=== PATIENT | male | born 1945 | race African-American/Black ===

== ENCOUNTER 2016-08-16 12:29 | Inpatient (IN) ==
[2016-08-17] MEDS: *HR* OxyCODONE Immed Rel 5 MG TABLET PO PRN ×3 (14:33→23:47)
[2016-08-17] MEDS ORDERED: D5% in Water 1,000 ML IV PRN (14:59)
[2016-08-17] MEDS ORDERED: *HR* Dextrose 50 % in Water (Syg) 50 ML SYRINGE IVP PRN (14:59)
[2016-08-17] MEDS ORDERED: Dextrose Gel 15 GM PO PRN ×2 (14:59)
[2016-08-17] MEDS: Baclofen 10 MG TABLET PO SCH ×2 (16:59→19:48)
[2016-08-17] MEDS: *HR* OxyCODONE ER (12 HR) 10 MG TABLET PO PRN (17:03)
[2016-08-18] MEDS: *HR* OxyCODONE Immed Rel 5 MG TABLET PO PRN ×5 (03:47→20:46)
[2016-08-18 05:37] LABS: Basophils % 0.3 %; Eosinophils # 0.1 K/mcL (0.0-0.6); Eosinophils % 0.9 %; Hematocrit 37.6 % (37.5-50.1); INR 1.2; Immature Granulocytes % 0.6 % (0-4); Lymphocytes # 0.9 K/mcL (0.6-4.6); Lymphocytes % 6.9 %; Mean Corpuscular HGB Conc 31.9 g/dL (31.6-35.5); Mean Corpuscular Hemoglobin 26.7 pg (28.0-33.3); Mean Corpuscular Volume 83.6 fL (83.0-100.0); Mean Platelet Volume 9.8 fL (9.4-12.4); Monocytes # 1.4 K/mcL (0.0-1.3); Monocytes % 10.9 %; Neutrophils # 10.3 K/mcL (1.6-8.9); Platelet Count 251 K/mcL (140-400); Prothrombin Time 13.3 Seconds (9.4-12.1); Red Cell Distribution Width 15.2 % (11.5-14.5); Segmented Neutrophils % 80.4 %
[2016-08-18 05:40] LABS: Activated Partial Thrombo Time 30.4 Seconds (26.0-36.0)
[2016-08-18 05:48] LABS: BUN/Creatinine Ratio 34 (6-26); Blood Urea Nitrogen 25 mg/dL (8-26); Calcium 9.2 mg/dL (8.6-10.8); Carbon Dioxide 26 mEq/L (19-29); Chloride 100 mEq/L (98-109); Glucose 166 mg/dL (70-99); Osmolality,Calculated 294 (280-300); Potassium 3.2 mEq/L (3.5-4.5); Sodium 138 mEq/L (136-145); eGFR For African Americans > 60 (> 60); eGFR For Non-African Americans > 60 (> 60)
[2016-08-18] MEDS: *HR* OxyCODONE ER (12 HR) 10 MG TABLET PO PRN ×2 (06:05→18:46)
[2016-08-18] MEDS: Lisinopril-HCTZ 20-12.5mg TABLET PO SCH (08:14)
[2016-08-18] MEDS: Baclofen 10 MG TABLET PO SCH ×3 (08:14→20:46)
[2016-08-18] MEDS: Aspirin 81 MG TAB.CHEW PO SCH (08:15)
[2016-08-18] MEDS: Metoprolol XL (24 HR) Succ 50 MG TAB.ER.24H PO SCH (08:15)
[2016-08-18] MEDS: MOM Conc 10 ML UD.LIQ PO SCH (08:15)
[2016-08-18] MEDS ORDERED: Ketorolac 60 MG/2 ML VIAL IM ONE (08:50)
[2016-08-18] MEDS: *HR* LORazepam 1 MG TABLET PO PRN ×2 (09:23→20:46)
--- NOTE | 2016-08-18 10:54 | Internal Med History&Physical ---
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 Kimble is a 71 year old male admitted to this facility for PTOT. Patient underwent a posterior cervical decompression and fusion of C3-C7. He has a history of cervical spinal cord compression, cervical myopathy. On today's examination the patient complains of significant postop pain. His long-acting pain medications along with rescue dose is not adequate patient is taking 3 to assist from supine to sit. Once to be laid down almost immediately due to pain. Patient has been requiring 2 person to assist in transfer. Patient has inability to sit up and stand.. Past Med Surg Social Fam HX - Past Medical History Medical history: arthritis, coronary artery disease, GERD, GI bleed, hyperlipidemia, hypertension Psychiatric history: no psych history - Past Surgical History Surgical History: orthopedic, other, other - Social History Smoking Status: Former smoker Smokeless Tobacco Status: No Alcohol use: none Drug use: none - Family History Mother Living Status: Age at : 76 Cause of : aortic anurism Internal Medicine - H&P: Meds OxyCODONE ER (12 HR) [OxyCONTIN] 10 mg PO Q12HR PRN 05/27/15 [History] Amlodipine Besylate 10 mg PO DAILY 03/17/16 [History] Atorvastatin [Lipitor] 40 mg PO HS 03/17/16 [History] Lisinopril/Hydrochlorothiazide [Zestoretic 20-12.5 mg Tablet] 2 tab PO DAILY 10/27 [History] Metoprolol XL (24 HR) Succ [Toprol Xl] 50 mg PO DAILY 03/17/16 [History] Oxycodone HCl/Acetaminophen [Percocet 5-325 mg Tablet] 1 tab PO Q6H PRN [History] Pantoprazole Sodium [Protonix] 40 mg PO Q12H #60 tablet. 03/19/16 [Rx] Sucralfate [Carafate] 1 gm PO TIDAC 30 Days 03/19/16 [Rx] Aspirin 81 mg PO DAILY 07/31/16 [History] OxyCODONE Immed Rel [Roxicodone 5 MG] 10 mg PO Q4H PRN #30 tablet 08/16/16 [Rx] Allergies Iodinated Contrast Media - Oral and [Iodinated Contrast Media - IV Dye] Allergy (Verified 05/01/16 12:58) Hives pravastatin Allergy (Verified 07/31/16 09:28) See Comments tachycardia pregabalin [From Lyrica] Adverse Reaction (Verified 07/31/16 09:28) See Comments strange thoughts All Systems PM: A 10-system review of systems was performed and is negative for pertinent findings except as documented above in the HPI. - Cardiovascular Cardiovascular ROS IM: no chest pain, no diaphoresis, no dyspnea, no lightheadedness, no palpitations, no syncope - Respiratory Respiratory: no cough, no dyspnea, no wheezing, no excessive phlegm production - Gastrointestinal Gastrointestinal: no abdominal pain, no diarrhea, no hematemesis, no hematochezia, no melena, no nausea, no vomiting - Musculoskeletal Musculoskeletal ROS IM: arthralgias, back pain, neck pain - Integumentary Integumentary IM: no rash, no unusual bruising - Neurological Neurological ROS: abnormal gait, radicular pain, no confusion, no convulsions, no focal weakness, no numbness, no tingling, no tremor(s) - Constitutional Vitals: Temp Pulse Resp BP Pulse Ox 98.7 F 76 16 158/78 97 08/18/16 09:29 08/18/16 09:29 08/18/16 09:29 08/18/16 09:29 08/18/16 09:29 General appearance: Present: mild distress, A&O X 3 - Neck Neck exam general surgery: Present: tenderness - Cardiovascular Cardiovascular exam: Present: RRR, +S1, +S2. Absent: diastolic murmur, gallop, rubs, systolic murmur - GI/Abdominal GI/Abdominal exam: Present: normal bowel sounds, soft, no peritoneal signs. Absent: distended, tenderness - Extremities Exam Extremities exam: Present: warm, radial pulses palpable and symetrical. Absent : calf tenderness, cyanotic, pedal edema - Neurological Exam Neurological exam: Present: CN II-XII intact, oriented X3, no focal deficits. Absent: pronater drift, facial droop, speech deficit Internal Med - H&P Results - Labs CBC & Chem 7: 08/18/16 05:25 08/18/16 05:25 Labs: Short CBC 08/18/16 Range/Units 05:25 WBC 12.8 H (4.3-11.1) K/mcL Hgb 12.0 L (12.9-16.9) g/dL Hct 37.6 (37.5-50.1) % Plt Count 251 (140-400) K/mcL Neutrophils # 10.3 H (1.6-8.9) K/mcL BMP 08/18/16 05:25 Sodium 138 Potassium 3.2 L Chloride 100 Carbon Dioxide 26 BUN 25 D Creatinine 0.73 Glucose 166 H Calcium 9.2 - VTE Documentation of Mechanical Device: Graduated compression elastic hosiery
[2016-08-18] MEDS: Ketorolac 30 MG/ML VIAL IM PRN (21:30)
[2016-08-19 05:23] LABS: Basophils # 0.1 K/mcL (0.0-0.2); Basophils % 0.7 %; Eosinophils # 0.3 K/mcL (0.0-0.6); Hematocrit 37.6 % (37.5-50.1); Hemoglobin 12.2 g/dL (12.9-16.9); Immature Granulocytes % 0.7 % (0-4); Lymphocytes # 1.8 K/mcL (0.6-4.6); Lymphocytes % 13.5 %; Mean Corpuscular HGB Conc 32.4 g/dL (31.6-35.5); Mean Corpuscular Hemoglobin 27.1 pg (28.0-33.3); Mean Corpuscular Volume 83.4 fL (83.0-100.0); Mean Platelet Volume 10.2 fL (9.4-12.4); Monocytes # 1.9 K/mcL (0.0-1.3); Neutrophils # 9.3 K/mcL (1.6-8.9); Platelet Count 286 K/mcL (140-400); Red Blood Count 4.51 M/mcL (4.19-5.50); Red Cell Distribution Width 15.4 % (11.5-14.5); Segmented Neutrophils % 69.1 %
[2016-08-19 05:31] LABS: INR 1.3; Prothrombin Time 13.6 Seconds (9.4-12.1)
[2016-08-19 05:43] LABS: Chloride 101 mEq/L (98-109)
[2016-08-19 05:44] LABS: BUN/Creatinine Ratio 41 (6-26); Blood Urea Nitrogen 35 mg/dL (8-26); Calcium 9.1 mg/dL (8.6-10.8); Carbon Dioxide 28 mEq/L (19-29); Glucose 146 mg/dL (70-99); Osmolality,Calculated 299 (280-300); Sodium 139 mEq/L (136-145); eGFR For African Americans > 60 (> 60); eGFR For Non-African Americans > 60 (> 60)
[2016-08-19] MEDS: *HR* OxyCODONE ER (12 HR) 10 MG TABLET PO PRN ×2 (05:48→17:42)
[2016-08-19] MEDS: Aspirin 81 MG TAB.CHEW PO SCH (08:43)
[2016-08-19] MEDS: Lisinopril-HCTZ 20-12.5mg TABLET PO SCH (08:43)
[2016-08-19] MEDS: Metoprolol XL (24 HR) Succ 50 MG TAB.ER.24H PO SCH (08:44)
[2016-08-19] MEDS: *HR* OxyCODONE Immed Rel 5 MG TABLET PO PRN ×3 (08:44→20:56)
[2016-08-19] MEDS: MOM Conc 10 ML UD.LIQ PO SCH (08:45)
[2016-08-19] MEDS: Baclofen 10 MG TABLET PO SCH ×3 (09:19→20:55)
[2016-08-19] MEDS: Ketorolac 30 MG/ML VIAL IM PRN ×2 (10:01→21:50)
[2016-08-19] MEDS ORDERED: Dextrose Gel 15 GM PO PRN ×2 (12:00)
[2016-08-19] MEDS ORDERED: D5% in Water 1,000 ML IV PRN (12:00)
[2016-08-19] MEDS ORDERED: *HR* Dextrose 50 % in Water (Syg) 50 ML SYRINGE IVP PRN (12:00)
[2016-08-19] MEDS: Insulin LISPRO 300 UNITS/3 ML VIAL SQ SCH ×3 (13:23→20:54)
--- NOTE | 2016-08-19 13:30 | Internal Med Progress Note ---
Date of Encounter: 08/19/16 Time of Encounter: 13:28 - Assessment and plan (1) S/P cervical spinal fusion Current Visit: Yes Status: Acute Assessment and plan: She notes significant pain and loss of some cervical functions in the upper extremities which are improving now (2) Chronic pain syndrome Current Visit: Yes Status: Chronic Assessment and plan: Patient is had a lot of pain chronically and were driving to work so he can do his therapy. He states he is feeling much better today - Subjective Interval history: Pain is much better controlled today. Also the patient was able to use his silverware to feed himself which is definite improvement in terms of his tactile and digital performance - Constitutional Vitals: Temp Pulse Resp BP Pulse Ox 98.2 F 80 18 156/84 95 08/19/16 08:46 08/19/16 08:46 08/19/16 08:46 08/19/16 08:46 08/19/16 08:46 General appearance: Present: mild distress, A&O X 3 - Head Head exam: Present: atraumatic, normal inspection, normocephalic - Neck Neck exam general surgery: Present: supple, trachea midline. Absent: lymphadenopathy - Respiratory Respiratory exam: Present: CTAB. Absent: accessory muscle use, rales, rhonchi, wheezes - Cardiovascular Cardiovascular exam: Present: RRR, +S1, +S2. Absent: diastolic murmur, gallop, rubs, systolic murmur - GI/Abdominal GI/Abdominal exam: Present: normal bowel sounds, soft, no peritoneal signs. Absent: distended, tenderness Internal Medicine: Result - Labs CBC & Chem 7: 08/19/16 05:00 08/19/16 05:00 Labs: Short CBC 08/19/16 Range/Units 05:00 WBC 13.4 H (4.3-11.1) K/mcL Hgb 12.2 L (12.9-16.9) g/dL Hct 37.6 (37.5-50.1) % Plt Count 286 (140-400) K/mcL Neutrophils # 9.3 H (1.6-8.9) K/mcL BMP 08/19/16 05:00 Sodium 139 Potassium 3.0 L Chloride 101 Carbon Dioxide 28 BUN 35 H D Creatinine 0.85 Glucose 146 H Calcium 9.1 After watch the BUN. - ABG Interpretation ABG results: PT/INR, D-dimer PT 13.6 Seconds (9.4-12.1) H 08/19/16 05:00 - VTE Documentation of Mechanical Device: Graduated compression elastic hosiery Consult Discharge Plan - Plan Instructions: Ketorolac (By mouth) Referrals: Nieves Jerry MD [Primary Care Provider] -
[2016-08-19] MEDS: *HR* Metformin 500 MG TABLET PO SCH (17:42)
[2016-08-20] MEDS: *HR* OxyCODONE Immed Rel 5 MG TABLET PO PRN ×5 (04:49→23:19)
[2016-08-20] MEDS: Baclofen 10 MG TABLET PO SCH ×3 (08:23→19:56)
[2016-08-20] MEDS: Aspirin 81 MG TAB.CHEW PO SCH (08:24)
[2016-08-20] MEDS: *HR* OxyCODONE ER (12 HR) 10 MG TABLET PO PRN ×2 (08:24→19:56)
[2016-08-20] MEDS: Metoprolol XL (24 HR) Succ 50 MG TAB.ER.24H PO SCH (08:24)
[2016-08-20] MEDS: *HR* Metformin 500 MG TABLET PO SCH ×2 (08:24→17:11)
[2016-08-20] MEDS: Lisinopril-HCTZ 20-12.5mg TABLET PO SCH (08:24)
[2016-08-20] MEDS: Insulin LISPRO 300 UNITS/3 ML VIAL SQ SCH ×4 (08:25→20:56)
[2016-08-20] MEDS: MOM Conc 10 ML UD.LIQ PO SCH (08:31)
[2016-08-20] MEDS: Ketorolac 30 MG/ML VIAL IM PRN (10:21)
--- NOTE | 2016-08-20 15:47 | Internal Med Progress Note ---
Date of Encounter: 08/20/16 Time of Encounter: 15:45 - Assessment and plan (1) S/P cervical spinal fusion Current Visit: Yes Status: Acute Assessment and plan: Pain is less and as I said his arms are working better (2) Chronic pain syndrome Current Visit: Yes Status: Chronic Assessment and plan: Improved overall - Time Spent With Patient less than 15 minutes - Subjective Interval history: Patient continues to improve. He is moving his arms well as having less pain overall performing well with a therapist - Constitutional Vitals: Temp Pulse Resp BP Pulse Ox 98.9 F 80 16 139/71 98 08/20/16 07:00 08/20/16 07:00 08/20/16 07:00 08/20/16 07:00 08/20/16 07:00 General appearance: Present: mild distress, A&O X 3 - Head Head exam: Present: atraumatic, normal inspection, normocephalic - Neck Neck exam general surgery: Present: supple, trachea midline. Absent: lymphadenopathy - Respiratory Respiratory exam: Present: CTAB. Absent: accessory muscle use, rales, rhonchi, wheezes - Cardiovascular Cardiovascular exam: Present: RRR, +S1, +S2. Absent: diastolic murmur, gallop, rubs, systolic murmur Internal Medicine: Result - Labs CBC & Chem 7: 08/19/16 05:00 08/19/16 05:00 Labs: Lab is stable. We will follow the BUN - ABG Interpretation ABG results: PT/INR, D-dimer PT 13.6 Seconds (9.4-12.1) H 08/19/16 05:00 - VTE Documentation of Mechanical Device: Graduated compression elastic hosiery Consult Discharge Plan - Plan Instructions: Ketorolac (By mouth) Referrals: Nieves Jerry MD [Primary Care Provider] -
[2016-08-20] MEDS: Temazepam 15 MG CAPSULE PO PRN (23:13)
[2016-08-21] MEDS: Ketorolac 30 MG/ML VIAL IM PRN ×2 (06:27→16:25)
[2016-08-21] MEDS: *HR* OxyCODONE Immed Rel 5 MG TABLET PO PRN ×3 (06:37→20:57)
[2016-08-21] MEDS: *HR* Metformin 500 MG TABLET PO SCH ×2 (08:04→16:38)
[2016-08-21] MEDS: Metoprolol XL (24 HR) Succ 50 MG TAB.ER.24H PO SCH (08:04)
[2016-08-21] MEDS: Lisinopril-HCTZ 20-12.5mg TABLET PO SCH (08:04)
[2016-08-21] MEDS: Aspirin 81 MG TAB.CHEW PO SCH (08:04)
[2016-08-21] MEDS: Baclofen 10 MG TABLET PO SCH ×3 (08:04→20:55)
[2016-08-21] MEDS: MOM Conc 10 ML UD.LIQ PO SCH (08:06)
[2016-08-21] MEDS: Insulin LISPRO 300 UNITS/3 ML VIAL SQ SCH ×4 (08:06→21:20)
--- NOTE | 2016-08-21 13:39 | Internal Med Progress Note ---
Date of Encounter: 08/21/16 Time of Encounter: 13:37 - Assessment and plan (1) S/P cervical spinal fusion Current Visit: Yes Status: Acute Assessment and plan: Continuing to improve upper extremity strength and were started to work on ambulation (2) Chronic pain syndrome Current Visit: Yes Status: Chronic - Time Spent With Patient less than 15 minutes - Subjective Interval history: Patient continues to improve. He is moving his arms well as having less pain overall performing well with a therapist. Daily there is been a increase in his ability to perform - Constitutional Vitals: Temp Pulse Resp BP Pulse Ox 97.9 F 67 18 164/83 96 08/21/16 07:12 08/21/16 07:12 08/21/16 07:12 08/21/16 07:12 08/21/16 07:12 General appearance: Present: mild distress, A&O X 3 - Head Head exam: Present: atraumatic, normal inspection, normocephalic - Neck Neck exam general surgery: Present: tenderness (No acute change), supple, trachea midline. Absent: lymphadenopathy - Respiratory Respiratory exam: Present: CTAB. Absent: accessory muscle use, rales, rhonchi, wheezes - Cardiovascular Cardiovascular exam: Present: RRR, +S1, +S2. Absent: diastolic murmur, gallop, rubs, systolic murmur Internal Medicine: Result - Labs CBC & Chem 7: 08/19/16 05:00 08/19/16 05:00 Labs: Off to keep it around BUN - ABG Interpretation ABG results: PT/INR, D-dimer PT 13.6 Seconds (9.4-12.1) H 08/19/16 05:00 - VTE Documentation of Mechanical Device: Graduated compression elastic hosiery Consult Discharge Plan - Plan Instructions: Ketorolac (By mouth) Referrals: Nieves Jerry MD [Primary Care Provider] -
[2016-08-21] MEDS: *HR* OxyCODONE ER (12 HR) 10 MG TABLET PO PRN (14:06)
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
--- NOTE | 2016-08-21 14:58 | Physcial Medicine-Consult Note ---
Date of Encounter: 08/22/16 Time of Encounter: 14:57 Physical Medicine - AP (1) S/P cervical spinal fusion Status: Acute Assessment and plan: 1. Mr. Kimble has mad significant improvement in his function since admission. He continues to have difficulty sitting in an upright postion for long periods of time. We will change his wheelchair to one with a lower back to encourage improved posture and increase his core strength. He requires CGA assist for transfers. He is ambulating 150 feet with a wheeled walker. We will continue with intensive PT/OT/TR to address these continued goals. DAISY . Code(s): Z98.1 - Arthrodesis status SNOMED Code(s): 255727814 Physical Medicine - HPI - Data of Consult Consult date: 08/21/16 Requesting Physician: Ruiz Bradley DO Primary Care Provider: Nieves Jerry, - Consult Narrative Reason for consult: s/p cervical fusion History of present illness: Mr. Kimble is a 71 year old male who was admitted for inpatient rehabilitation following a C3-7 posterior cervical decompression due to cervical stenosis and myelopathy. Patient reports that his pain has improved significantly since admission. CC: Ruiz Bradley DO Past Med Surg Social Fam - Past Medical History Medical history: arthritis, coronary artery disease, GERD, GI bleed, hyperlipidemia, hypertension Psychiatric history: no psych history - Past Surgical History Surgical History: orthopedic, other, other - Social History Smoking Status: Former smoker Smokeless Tobacco Status: No Alcohol use: none Drug use: none - Family History Mother Living Status: Age at : 76 Cause of : aortic anurism Medications and Allergies OxyCODONE ER (12 HR) [OxyCONTIN] 10 mg PO Q12HR PRN 05/27/15 [History] Amlodipine Besylate 10 mg PO DAILY 03/17/16 [History] Atorvastatin [Lipitor] 40 mg PO HS 03/17/16 [History] Lisinopril/Hydrochlorothiazide [Zestoretic 20-12.5 mg Tablet] 2 tab PO DAILY 10/27 [History] Metoprolol XL (24 HR) Succ [Toprol Xl] 50 mg PO DAILY 03/17/16 [History] Oxycodone HCl/Acetaminophen [Percocet 5-325 mg Tablet] 1 tab PO Q6H PRN [History] Pantoprazole Sodium [Protonix] 40 mg PO Q12H #60 tablet. 03/19/16 [Rx] Sucralfate [Carafate] 1 gm PO TIDAC 30 Days 03/19/16 [Rx] Aspirin 81 mg PO DAILY 07/31/16 [History] OxyCODONE Immed Rel [Roxicodone 5 MG] 10 mg PO Q4H PRN #30 tablet 08/16/16 [Rx] Allergies Iodinated Contrast Media - Oral and [Iodinated Contrast Media - IV Dye] Allergy (Verified 05/01/16 12:58) Hives pravastatin Allergy (Verified 07/31/16 09:28) See Comments tachycardia pregabalin [From Lyrica] Adverse Reaction (Verified 07/31/16 09:28) See Comments strange thoughts - Constitutional Constitutional: Absent: anorexia, chills, daytime sleepiness - Cardiovascular Cardiovascular: Absent: chest pain, diaphoresis, dyspnea - Respiratory Respiratory: Absent: dyspnea, dyspnea on exertion - Gastrointestinal Gastrointestinal: Absent: abdominal pain, fecal incontinence - Musculoskeletal Musculoskeletal: Absent: muscle weakness - Neurological Neurological: Absent: abnormal gait Physical Medicine - Exam - Constitutional Vitals: Temp Pulse Resp BP Pulse Ox 97.9 F 67 18 164/83 96 08/21/16 07:12 08/21/16 07:12 08/21/16 07:12 08/21/16 07:12 08/21/16 07:12 - Head Head exam: Present: atraumatic, normal inspection - Respiratory Respiratory exam: Present: CTAB - Cardiovascular Cardiovascular exam: Present: RRR - GI/Abdominal GI/Abdominal exam: Present: soft. Absent: tenderness - Extremities Exam Extremities exam: Absent: calf tenderness, tenderness Additional comments: Evaluation of the upper and lower limbs reveals no muscular atrophy. Upper and lower limb reflexes are absent. Motor strength is 5/5 in the bilateral upper and lower limbs. Patient has diminished fine motor coordination in the bilateral hands. Physical Medicine - Results - Labs CBC & Chem 7: 08/19/16 05:00 08/22/16 05:15 Consult Discharge Plan - Plan Instructions: Ketorolac (By mouth) Referrals: Nieves Jerry MD [Primary Care Provider] -
[2016-08-21] MEDS: Temazepam 15 MG CAPSULE PO PRN (22:54)
[2016-08-22] MEDS: *HR* OxyCODONE ER (12 HR) 10 MG TABLET PO PRN ×2 (02:51→16:48)
[2016-08-22] MEDS: Ketorolac 30 MG/ML VIAL IM PRN (05:38)
[2016-08-22 05:50] LABS: BUN/Creatinine Ratio 23 (6-26); Blood Urea Nitrogen 19 mg/dL (8-26); Calcium 9.5 mg/dL (8.6-10.8); Carbon Dioxide 29 mEq/L (19-29); Chloride 101 mEq/L (98-109); Glucose 138 mg/dL (70-99); Osmolality,Calculated 294 (280-300); Potassium 3.7 mEq/L (3.5-4.5); Sodium 140 mEq/L (136-145); eGFR For African Americans > 60 (> 60); eGFR For Non-African Americans > 60 (> 60)
[2016-08-22] MEDS: Insulin LISPRO 300 UNITS/3 ML VIAL SQ SCH ×4 (07:57→21:42)
[2016-08-22] MEDS: Baclofen 10 MG TABLET PO SCH ×3 (08:19→20:21)
[2016-08-22] MEDS: Lisinopril-HCTZ 20-12.5mg TABLET PO SCH (08:19)
[2016-08-22] MEDS: *HR* Metformin 500 MG TABLET PO SCH ×2 (08:19→16:48)
[2016-08-22] MEDS: Aspirin 81 MG TAB.CHEW PO SCH (08:20)
[2016-08-22] MEDS: Metoprolol XL (24 HR) Succ 50 MG TAB.ER.24H PO SCH (08:20)
[2016-08-22] MEDS: *HR* OxyCODONE Immed Rel 5 MG TABLET PO PRN ×3 (08:20→20:22)
[2016-08-22] MEDS: MOM Conc 10 ML UD.LIQ PO SCH (08:21)
[2016-08-22] MEDS: *HR* LORazepam 1 MG TABLET PO PRN ×2 (11:05→21:47)
--- NOTE | 2016-08-22 14:09 | Internal Med Progress Note ---
Date of Encounter: 08/22/16 Time of Encounter: 14:08 - Assessment and plan (1) S/P cervical spinal fusion Current Visit: Yes Status: Acute Assessment and plan: Continuing work with the therapist unless pain better R movement etc. (2) Chronic pain syndrome Current Visit: Yes Status: Chronic Assessment and plan: Much improved. - Time Spent With Patient less than 15 minutes - Subjective Interval history: Patient continues to improve. He is moving his arms well as having less pain overall performing well with a therapist. Daily there is been a increase in his ability to perform - Constitutional Vitals: Temp Pulse Resp BP Pulse Ox 98.1 F 83 18 154/88 96 08/22/16 07:00 08/22/16 07:00 08/22/16 07:00 08/22/16 07:00 08/22/16 07:00 General appearance: Present: mild distress, A&O X 3 - Head Head exam: Present: atraumatic, normal inspection, normocephalic - Neck Neck exam general surgery: Present: tenderness, supple, trachea midline. Absent : lymphadenopathy - Respiratory Respiratory exam: Present: CTAB. Absent: accessory muscle use, rales, rhonchi, wheezes - Cardiovascular Cardiovascular exam: Present: RRR, +S1, +S2. Absent: diastolic murmur, gallop, rubs, systolic murmur Internal Medicine: Result - Labs CBC & Chem 7: 08/19/16 05:00 08/22/16 05:15 Labs: BMP 08/22/16 05:15 Sodium 140 Potassium 3.7 Chloride 101 Carbon Dioxide 29 BUN 19 Creatinine 0.82 Glucose 138 H Calcium 9.5 Labs stable - ABG Interpretation ABG results: PT/INR, D-dimer PT 13.6 Seconds (9.4-12.1) H 08/19/16 05:00 - VTE Documentation of Mechanical Device: Graduated compression elastic hosiery Consult Discharge Plan - Plan Instructions: Ketorolac (By mouth) Referrals: Nieves Jerry MD [Primary Care Provider] -
[2016-08-22] MEDS: Temazepam 15 MG CAPSULE PO PRN (21:46)
[2016-08-23] MEDS: *HR* OxyCODONE Immed Rel 5 MG TABLET PO PRN ×5 (00:25→21:53)
[2016-08-23 05:29] LABS: Basophils # 0.1 K/mcL (0.0-0.2); Basophils % 0.5 %; Eosinophils # 0.4 K/mcL (0.0-0.6); Eosinophils % 2.9 %; Hematocrit 32.2 % (37.5-50.1); Hemoglobin 10.5 g/dL (12.9-16.9); Immature Granulocytes % 1.4 % (0-4); Lymphocytes # 1.4 K/mcL (0.6-4.6); Mean Corpuscular HGB Conc 32.6 g/dL (31.6-35.5); Mean Corpuscular Hemoglobin 27.3 pg (28.0-33.3); Mean Corpuscular Volume 83.6 fL (83.0-100.0); Mean Platelet Volume 9.3 fL (9.4-12.4); Monocytes # 1.3 K/mcL (0.0-1.3); Neutrophils # 9.7 K/mcL (1.6-8.9); Platelet Count 311 K/mcL (140-400); Red Blood Count 3.85 M/mcL (4.19-5.50); Red Cell Distribution Width 14.5 % (11.5-14.5); Segmented Neutrophils % 74.2 %
[2016-08-23] MEDS: Insulin LISPRO 300 UNITS/3 ML VIAL SQ SCH ×4 (07:56→21:57)
[2016-08-23] MEDS: MOM Conc 10 ML UD.LIQ PO SCH (08:06)
[2016-08-23] MEDS: Lisinopril-HCTZ 20-12.5mg TABLET PO SCH (08:08)
[2016-08-23] MEDS: *HR* Metformin 500 MG TABLET PO SCH ×2 (08:08→17:04)
[2016-08-23] MEDS: Metoprolol XL (24 HR) Succ 50 MG TAB.ER.24H PO SCH (08:08)
[2016-08-23] MEDS: *HR* OxyCODONE ER (12 HR) 10 MG TABLET PO PRN (08:09)
[2016-08-23] MEDS: Baclofen 10 MG TABLET PO SCH ×3 (08:09→21:51)
[2016-08-23] MEDS: Aspirin 81 MG TAB.CHEW PO SCH (08:09)
[2016-08-23] MEDS: Ketorolac 60 MG/2 ML VIAL IM SCH (13:21)
--- NOTE | 2016-08-23 14:01 | Internal Med Progress Note ---
Date of Encounter: 08/23/16 Time of Encounter: 13:59 - Assessment and plan (1) S/P cervical spinal fusion Current Visit: Yes Status: Acute Assessment and plan: Patient's E to work with therapy. We have a little bit of a setback with increasing pain that had not been there most of the week (2) Chronic pain syndrome Current Visit: Yes Status: Chronic Assessment and plan: See above - Time Spent With Patient less than 15 minutes - Subjective Interval history: Unfortunately the pain returned to a little bit of yesterday evening and today. So I taken the liberty of restoring Toradol which is what he said helped him the most. Also changed his pain medicine a little bit. He had complained of this bad pain really all week long and nothing else seems to change. There is no fever vital signs are stable. So we will try it this way and see how he does . He is very interested in doing therapy - Constitutional Vitals: Temp Pulse Resp BP Pulse Ox 98.3 F 77 16 156/79 95 08/23/16 07:00 08/23/16 07:00 08/23/16 07:00 08/23/16 07:00 08/23/16 07:00 General appearance: Present: mild distress, A&O X 3 - Head Head exam: Present: normal inspection - Neck Neck exam general surgery: Present: supple, trachea midline. Absent: lymphadenopathy - Respiratory Respiratory exam: Present: CTAB. Absent: accessory muscle use, rales, rhonchi, wheezes - Cardiovascular Cardiovascular exam: Present: RRR, +S1, +S2. Absent: diastolic murmur, gallop, rubs, systolic murmur Internal Medicine: Result - Labs CBC & Chem 7: 08/23/16 05:15 08/22/16 05:15 Labs: Short CBC 08/23/16 Range/Units 05:15 WBC 13.0 H (4.3-11.1) K/mcL Hgb 10.5 L D (12.9-16.9) g/dL Hct 32.2 L (37.5-50.1) % Plt Count 311 (140-400) K/mcL Neutrophils # 9.7 H (1.6-8.9) K/mcL Labs look stable - ABG Interpretation ABG results: PT/INR, D-dimer PT 13.6 Seconds (9.4-12.1) H 08/19/16 05:00 - VTE Documentation of Mechanical Device: Graduated compression elastic hosiery Consult Discharge Plan - Plan Instructions: Ketorolac (By mouth) Referrals: Nieves Jerry MD [Primary Care Provider] -
[2016-08-23] MEDS: *HR* OxyCODONE ER (12 HR) 20 MG TABLET PO SCH (17:04)
[2016-08-23] MEDS: *HR* LORazepam 1 MG TABLET PO PRN (21:52)
[2016-08-23] MEDS: Temazepam 15 MG CAPSULE PO PRN (21:53)
[2016-08-24] MEDS: Ketorolac 60 MG/2 ML VIAL IM SCH ×2 (00:51→13:00)
[2016-08-24] MEDS: *HR* OxyCODONE Immed Rel 5 MG TABLET PO PRN ×5 (03:14→20:48)
[2016-08-24] MEDS: *HR* OxyCODONE ER (12 HR) 20 MG TABLET PO SCH ×2 (05:42→17:25)
[2016-08-24] MEDS: Aspirin 81 MG TAB.CHEW PO SCH (07:57)
[2016-08-24] MEDS: Lisinopril-HCTZ 20-12.5mg TABLET PO SCH (07:57)
[2016-08-24] MEDS: Baclofen 10 MG TABLET PO SCH ×3 (07:57→20:50)
[2016-08-24] MEDS: *HR* Metformin 500 MG TABLET PO SCH ×2 (07:57→16:18)
[2016-08-24] MEDS: Metoprolol XL (24 HR) Succ 50 MG TAB.ER.24H PO SCH (07:58)
[2016-08-24] MEDS: Insulin LISPRO 300 UNITS/3 ML VIAL SQ SCH ×4 (07:59→20:45)
[2016-08-24] MEDS: MOM Conc 10 ML UD.LIQ PO SCH (08:00)
--- NOTE | 2016-08-24 12:41 | Internal Med Progress Note ---
Date of Encounter: 08/24/16 Time of Encounter: 12:39 - Assessment and plan (1) S/P cervical spinal fusion Current Visit: Yes Status: Acute Assessment and plan: Significant improvement with pain control since starting IM [email or web address] made significant improvement in his function since admission. He continues to have difficulty sitting in an upright postion for long periods of time. We will change his wheelchair to one with a lower back to encourage improved posture and increase his core strength. He requires CGA assist for transfers. He is ambulating 150 feet with a wheeled walker. We will continue with intensive PT/ OT/TR to address these continued goals. (2) Chronic pain syndrome Current Visit: Yes Status: Chronic Assessment and plan: Better controlled. Still requiring long-acting OxyContin 20 mg twice a day (3) Diabetes mellitus Current Visit: Yes Status: Chronic Assessment and plan: Accu-Chek 115 today. 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 Patient feels that he is getting stronger. He denies any shortness of breath. No chest pain. No nausea vomiting abdominal pain. - Constitutional Vitals: Temp Pulse Resp BP Pulse Ox 98.7 F 80 18 163/87 98 08/24/16 07:36 08/24/16 07:36 08/24/16 07:36 08/24/16 07:36 08/24/16 07:36 General appearance: Present: mild distress, A&O X 3, pleasant, no acute distress - Neck Neck exam general surgery: Present: tenderness - Cardiovascular Cardiovascular exam: Present: RRR, +S1, +S2. Absent: diastolic murmur, gallop, rubs, systolic murmur - GI/Abdominal GI/Abdominal exam: Present: normal bowel sounds, soft, no peritoneal signs. Absent: distended, tenderness - Extremities Exam Extremities exam: Present: warm, radial pulses palpable and symetrical. Absent : calf tenderness, cyanotic, pedal edema Internal Medicine: Result - Labs CBC & Chem 7: 08/23/16 05:15 08/22/16 05:15 - ABG Interpretation ABG results: PT/INR, D-dimer PT 13.6 Seconds (9.4-12.1) H 08/19/16 05:00 - VTE Documentation of Mechanical Device: Graduated compression elastic hosiery Consult Discharge Plan - Plan Instructions: Ketorolac (By mouth) Referrals: Nieves Jerry MD [Primary Care Provider] -
[2016-08-24] MEDS: Temazepam 15 MG CAPSULE PO PRN (22:04)
[2016-08-25] MEDS: Ketorolac 60 MG/2 ML VIAL IM SCH ×2 (01:13→12:42)
[2016-08-25] MEDS: *HR* OxyCODONE ER (12 HR) 20 MG TABLET PO SCH ×2 (06:27→19:11)
[2016-08-25] MEDS: Insulin LISPRO 300 UNITS/3 ML VIAL SQ SCH ×4 (07:36→21:41)
[2016-08-25] MEDS: Lisinopril-HCTZ 20-12.5mg TABLET PO SCH (07:49)
[2016-08-25] MEDS: Baclofen 10 MG TABLET PO SCH ×3 (07:49→20:18)
[2016-08-25] MEDS: *HR* Metformin 500 MG TABLET PO SCH ×2 (07:49→16:54)
[2016-08-25] MEDS: Aspirin 81 MG TAB.CHEW PO SCH (07:49)
[2016-08-25] MEDS: Metoprolol XL (24 HR) Succ 50 MG TAB.ER.24H PO SCH (07:49)
[2016-08-25] MEDS: MOM Conc 10 ML UD.LIQ PO SCH (07:50)
[2016-08-25] MEDS: *HR* OxyCODONE Immed Rel 5 MG TABLET PO PRN ×4 (07:58→21:52)
--- NOTE | 2016-08-25 13:42 | Internal Med Progress Note ---
Date of Encounter: 08/25/16 Time of Encounter: 13:40 - Assessment and plan (1) S/P cervical spinal fusion Current Visit: Yes Status: Acute (2) Chronic pain syndrome Current Visit: Yes Status: Chronic Assessment and plan: Range better control - Time Spent With Patient less than 15 minutes - Subjective Interval history: Pains much better controlled with pharmacist recommended reducing Toradol 30 twice a day from 60. I will do this. Patient has a follow-up this coming week with the surgeon - Constitutional Vitals: Temp Pulse Resp BP Pulse Ox 98.9 F 75 18 154/77 97 08/25/16 07:00 08/25/16 07:00 08/25/16 07:00 08/25/16 07:00 08/25/16 07:00 General appearance: Present: mild distress, A&O X 3, pleasant, no acute distress - Head Head exam: Present: atraumatic, normal inspection, normocephalic - Neck Neck exam general surgery: Present: supple, trachea midline. Absent: lymphadenopathy - Respiratory Respiratory exam: Present: CTAB. Absent: accessory muscle use, rales, rhonchi, wheezes - Cardiovascular Cardiovascular exam: Present: RRR, +S1, +S2. Absent: diastolic murmur, gallop, rubs, systolic murmur Internal Medicine: Result - Labs CBC & Chem 7: 08/23/16 05:15 08/22/16 05:15 Labs: Lab looks okay - ABG Interpretation ABG results: PT/INR, D-dimer PT 13.6 Seconds (9.4-12.1) H 08/19/16 05:00 - VTE Documentation of Mechanical Device: Graduated compression elastic hosiery Consult Discharge Plan - Plan Instructions: Ketorolac (By mouth) Referrals: Nieves Jerry MD [Primary Care Provider] -
[2016-08-25] MEDS: *HR* LORazepam 1 MG TABLET PO PRN (20:18)
[2016-08-25] MEDS: Temazepam 15 MG CAPSULE PO PRN (21:52)
[2016-08-26] MEDS ORDERED: Ketorolac 60 MG/2 ML VIAL IM SCH (01:00)
[2016-08-26] MEDS: *HR* OxyCODONE Immed Rel 5 MG TABLET PO PRN ×5 (04:47→22:30)
[2016-08-26 05:29] LABS: Basophils # 0.1 K/mcL (0.0-0.2); Basophils % 0.3 %; Eosinophils # 0.5 K/mcL (0.0-0.6); Eosinophils % 2.7 %; Hematocrit 32.2 % (37.5-50.1); Hemoglobin 10.1 g/dL (12.9-16.9); Immature Granulocytes % 0.8 % (0-4); Lymphocytes # 1.8 K/mcL (0.6-4.6); Lymphocytes % 10.9 %; Mean Corpuscular HGB Conc 31.4 g/dL (31.6-35.5); Mean Corpuscular Volume 86.1 fL (83.0-100.0); Mean Platelet Volume 9.2 fL (9.4-12.4); Monocytes # 1.4 K/mcL (0.0-1.3); Neutrophils # 13.1 K/mcL (1.6-8.9); Platelet Count 314 K/mcL (140-400); Red Blood Count 3.74 M/mcL (4.19-5.50); Red Cell Distribution Width 14.4 % (11.5-14.5); Segmented Neutrophils % 77.3 %
[2016-08-26 05:35] LABS: BUN/Creatinine Ratio 20 (6-26); Blood Urea Nitrogen 16 mg/dL (8-26); Calcium 9.7 mg/dL (8.6-10.8); Carbon Dioxide 30 mEq/L (19-29); Chloride 101 mEq/L (98-109); Glucose 120 mg/dL (70-99); Osmolality,Calculated 290 (280-300); Potassium 4.6 mEq/L (3.5-4.5); Sodium 139 mEq/L (136-145); eGFR For African Americans > 60 (> 60); eGFR For Non-African Americans > 60 (> 60)
[2016-08-26] MEDS: *HR* OxyCODONE ER (12 HR) 20 MG TABLET PO SCH ×2 (06:06→17:00)
[2016-08-26] MEDS: *HR* Metformin 500 MG TABLET PO SCH ×2 (08:14→17:01)
[2016-08-26] MEDS: Aspirin 81 MG TAB.CHEW PO SCH (08:14)
[2016-08-26] MEDS: Lisinopril-HCTZ 20-12.5mg TABLET PO SCH (08:14)
[2016-08-26] MEDS: Baclofen 10 MG TABLET PO SCH ×3 (08:14→21:13)
[2016-08-26] MEDS: MOM Conc 10 ML UD.LIQ PO SCH (08:16)
[2016-08-26] MEDS: Insulin LISPRO 300 UNITS/3 ML VIAL SQ SCH ×4 (08:16→20:39)
[2016-08-26] MEDS: Metoprolol XL (24 HR) Succ 50 MG TAB.ER.24H PO SCH (08:17)
[2016-08-26] MEDS ORDERED: Ketorolac 30 MG/ML VIAL IM ONE (11:11)
--- NOTE | 2016-08-26 13:11 | Internal Med Progress Note ---
Date of Encounter: 08/26/16 Time of Encounter: 13:08 - Assessment and plan (1) S/P cervical spinal fusion Current Visit: Yes Status: Acute Assessment and plan: Patient's work with PT OT TR. It is a bit unusual only Toradol helps his pain (2) Chronic pain syndrome Current Visit: Yes Status: Chronic Assessment and plan: See above see above - Time Spent With Patient less than 15 minutes - Subjective Interval history: Pains much better controlled with pharmacist recommended reducing Toradol 30 twice a day from 60. I will do this. Patient has a follow-up this coming week with the surgeon - Constitutional Vitals: Temp Pulse Resp BP Pulse Ox 98.0 F 61 16 155/89 96 08/26/16 07:22 08/26/16 07:22 08/26/16 07:22 08/26/16 07:22 08/26/16 07:22 General appearance: Present: mild distress, A&O X 3, pleasant, no acute distress - Head Head exam: Present: atraumatic, normal inspection, normocephalic - Neck Neck exam general surgery: Present: supple, trachea midline. Absent: lymphadenopathy - Respiratory Respiratory exam: Present: CTAB. Absent: accessory muscle use, rales, rhonchi, wheezes - Cardiovascular Cardiovascular exam: Present: RRR, +S1, +S2. Absent: diastolic murmur, gallop, rubs, systolic murmur - GI/Abdominal GI/Abdominal exam: Present: normal bowel sounds, soft, no peritoneal signs. Absent: distended, tenderness Internal Medicine: Result - Labs CBC & Chem 7: 08/26/16 05:15 08/26/16 05:15 Labs: Short CBC 08/26/16 Range/Units 05:15 WBC 16.9 H (4.3-11.1) K/mcL Hgb 10.1 L (12.9-16.9) g/dL Hct 32.2 L (37.5-50.1) % Plt Count 314 (140-400) K/mcL Neutrophils # 13.1 H (1.6-8.9) K/mcL BMP 08/26/16 05:15 Sodium 139 Potassium 4.6 H Chloride 101 Carbon Dioxide 30 H BUN 16 Creatinine 0.81 Glucose 120 H Calcium 9.7 Little concerned about the white count rechecked - ABG Interpretation ABG results: PT/INR, D-dimer PT 13.6 Seconds (9.4-12.1) H 08/19/16 05:00 - VTE Documentation of Mechanical Device: Graduated compression elastic hosiery Consult Discharge Plan - Plan Instructions: Ketorolac (By mouth) Referrals: Nieves Jerry MD [Primary Care Provider] -
[2016-08-26] MEDS: Ketorolac 30 MG/ML VIAL IM SCH (21:13)
[2016-08-27] MEDS: *HR* OxyCODONE Immed Rel 5 MG TABLET PO PRN ×5 (03:59→22:32)
[2016-08-27] MEDS: Ketorolac 30 MG/ML VIAL IM SCH ×2 (06:27→18:04)
[2016-08-27] MEDS: *HR* OxyCODONE ER (12 HR) 20 MG TABLET PO SCH ×2 (06:27→18:00)
[2016-08-27] MEDS: Insulin LISPRO 300 UNITS/3 ML VIAL SQ SCH ×4 (06:54→20:53)
[2016-08-27] MEDS: Metoprolol XL (24 HR) Succ 50 MG TAB.ER.24H PO SCH (07:40)
[2016-08-27] MEDS: Aspirin 81 MG TAB.CHEW PO SCH (07:40)
[2016-08-27] MEDS: *HR* Metformin 500 MG TABLET PO SCH ×2 (07:40→16:19)
[2016-08-27] MEDS: Baclofen 10 MG TABLET PO SCH ×3 (07:40→20:54)
[2016-08-27] MEDS: Lisinopril-HCTZ 20-12.5mg TABLET PO SCH (07:40)
[2016-08-27] MEDS: MOM Conc 10 ML UD.LIQ PO SCH (07:52)
--- NOTE | 2016-08-27 13:18 | Internal Med Progress Note ---
Date of Encounter: 08/27/16 Time of Encounter: : - Assessment and plan (1) S/P cervical spinal fusion Current Visit: Yes Status: Acute Assessment and plan: S1 patient is here for rehabilitation status post spinal fusion (2) Chronic pain syndrome Current Visit: Yes Status: Chronic Assessment and plan: Currently much improved - Time Spent With Patient less than 15 minutes - Subjective Interval history: Pains much better controlled . Patient would see his surgeon and was evaluated by the PA. They recommend cleaning the incision site with Betadine twice a day which we will do it also start Keflex 500 by mouth 3 times a day. He also has a follow-up with the surgeon himself or Friday. Also added K pad for the upper shoulders and posterior neck. - Constitutional Vitals: Temp Pulse Resp BP Pulse Ox 97.5 F L 80 18 169/97 96 08/27/16 07:00 08/27/16 07:00 08/27/16 07:00 08/27/16 07:00 08/27/16 07:00 General appearance: Present: mild distress, A&O X 3, pleasant, no acute distress - Head Head exam: Present: atraumatic, normal inspection, normocephalic - Neck Neck exam general surgery: Present: supple, trachea midline. Absent: lymphadenopathy - Respiratory Respiratory exam: Present: CTAB. Absent: accessory muscle use, rales, rhonchi, wheezes - Cardiovascular Cardiovascular exam: Present: RRR, +S1, +S2. Absent: diastolic murmur, gallop, rubs, systolic murmur Internal Medicine: Result - Labs CBC & Chem 7: 08/26/16 05:15 08/26/16 05:15 Labs: This may be the reason for the increase in his white count. - ABG Interpretation ABG results: PT/INR, D-dimer PT 13.6 Seconds (9.4-12.1) H 08/19/16 05:00 - VTE Documentation of Mechanical Device: Graduated compression elastic hosiery Consult Discharge Plan - Plan Instructions: Ketorolac (By mouth) Referrals: Nieves Jerry MD [Primary Care Provider] -
[2016-08-27] MEDS: Temazepam 15 MG CAPSULE PO PRN (22:30)
[2016-08-27] MEDS: *HR* LORazepam 1 MG TABLET PO PRN (22:30)
[2016-08-28] MEDS: *HR* OxyCODONE ER (12 HR) 20 MG TABLET PO SCH ×2 (05:26→17:42)
[2016-08-28] MEDS: Ketorolac 30 MG/ML VIAL IM SCH ×2 (05:26→17:44)
[2016-08-28] MEDS: Insulin LISPRO 300 UNITS/3 ML VIAL SQ SCH ×4 (07:35→21:37)
[2016-08-28] MEDS: MOM Conc 10 ML UD.LIQ PO SCH (07:36)
[2016-08-28] MEDS: Aspirin 81 MG TAB.CHEW PO SCH (07:48)
[2016-08-28] MEDS: Metoprolol XL (24 HR) Succ 50 MG TAB.ER.24H PO SCH (07:48)
[2016-08-28] MEDS: Baclofen 10 MG TABLET PO SCH ×3 (07:48→21:28)
[2016-08-28] MEDS: Lisinopril-HCTZ 20-12.5mg TABLET PO SCH (07:48)
[2016-08-28] MEDS: *HR* Metformin 500 MG TABLET PO SCH ×2 (07:49→17:41)
[2016-08-28] MEDS: *HR* OxyCODONE Immed Rel 5 MG TABLET PO PRN ×3 (10:21→21:29)
--- NOTE | 2016-08-28 14:32 | Internal Med Progress Note ---
Date of Encounter: 08/28/16 Time of Encounter: 14:30 - Assessment and plan (1) S/P cervical spinal fusion Current Visit: Yes Status: Acute Assessment and plan: Patient works with all therapist in all modalities. Has follow-up appointment Friday a.m. the surgeon (2) Chronic pain syndrome Current Visit: Yes Status: Chronic Assessment and plan: Adjustments artery rate upon discharge for this chronic pain. - Time Spent With Patient less than 15 minutes - Subjective Interval history: Rib pain is better today. But probably to be with the patient because graft to stop the Toradol. We will try to replace it with 800 ibuprofen. Patient cannot take the Toradol already starting exceeded the length of time of this prudent to give - Constitutional Vitals: Temp Pulse Resp BP Pulse Ox 98.3 F 70 17 121/68 94 L 08/28/16 07:00 08/28/16 07:00 08/28/16 07:00 08/28/16 07:00 08/28/16 07:00 General appearance: Present: mild distress, A&O X 3, pleasant, no acute distress - Head Head exam: Present: atraumatic, normal inspection, normocephalic - Neck Neck exam general surgery: Present: supple, trachea midline. Absent: lymphadenopathy - Respiratory Respiratory exam: Present: CTAB. Absent: accessory muscle use, rales, rhonchi, wheezes - Cardiovascular Cardiovascular exam: Present: RRR, +S1, +S2. Absent: diastolic murmur, gallop, rubs, systolic murmur Internal Medicine: Result - Labs CBC & Chem 7: 08/26/16 05:15 08/26/16 05:15 Labs: Lab is okay - ABG Interpretation ABG results: PT/INR, D-dimer PT 13.6 Seconds (9.4-12.1) H 08/19/16 05:00 - VTE Documentation of Mechanical Device: Graduated compression elastic hosiery Consult Discharge Plan - Plan Instructions: Ketorolac (By mouth) Referrals: Nieves Jerry MD [Primary Care Provider] -
[2016-08-28] MEDS: Temazepam 15 MG CAPSULE PO PRN (21:29)
[2016-08-28] MEDS: *HR* LORazepam 1 MG TABLET PO PRN (21:29)
[2016-08-29] MEDS: *HR* OxyCODONE Immed Rel 5 MG TABLET PO PRN ×4 (03:44→21:40)
[2016-08-29] MEDS: *HR* OxyCODONE ER (12 HR) 20 MG TABLET PO SCH ×2 (05:57→18:50)
[2016-08-29] MEDS: Ketorolac 30 MG/ML VIAL IM SCH ×2 (06:01→18:50)
[2016-08-29] MEDS: Insulin LISPRO 300 UNITS/3 ML VIAL SQ SCH ×4 (07:43→21:39)
[2016-08-29] MEDS: MOM Conc 10 ML UD.LIQ PO SCH (08:05)
[2016-08-29] MEDS: *HR* Metformin 500 MG TABLET PO SCH ×2 (08:06→16:38)
[2016-08-29] MEDS: Lisinopril-HCTZ 20-12.5mg TABLET PO SCH (08:06)
[2016-08-29] MEDS: Aspirin 81 MG TAB.CHEW PO SCH (08:06)
[2016-08-29] MEDS: Metoprolol XL (24 HR) Succ 50 MG TAB.ER.24H PO SCH (08:06)
[2016-08-29] MEDS: Baclofen 10 MG TABLET PO SCH ×3 (08:06→21:40)
--- NOTE | 2016-08-29 11:30 | Internal Med Progress Note ---
Date of Encounter: 08/29/16 Time of Encounter: 11:27 - Assessment and plan (1) S/P cervical spinal fusion Current Visit: Yes Status: Acute Assessment and plan: Patient will be discharged tomorrow. And then he is going straight to his surgeons for evaluation. Repeat CBC because he does have a bit of white count. There was drainage apparently reported on his incision. (2) Chronic pain syndrome Current Visit: Yes Status: Chronic Assessment and plan: Long-standing situation due to his cervical compression. - Time Spent With Patient less than 15 minutes - Subjective Interval history: Patient will need a wheelchair upon discharge. He is currently unsafe just use a walker. He will need that for transportation for follow-up visits and ability to get around the home for ADLs - Constitutional Vitals: Temp Pulse Resp BP Pulse Ox 98.2 F 69 18 151/63 96 08/29/16 07:00 08/29/16 07:00 08/29/16 07:00 08/29/16 07:00 08/29/16 07:00 General appearance: Present: mild distress, A&O X 3, pleasant, no acute distress - Head Head exam: Present: atraumatic, normal inspection, normocephalic - Neck Neck exam general surgery: Present: supple, trachea midline. Absent: lymphadenopathy - Respiratory Respiratory exam: Present: CTAB. Absent: accessory muscle use, rales, rhonchi, wheezes - Cardiovascular Cardiovascular exam: Present: RRR, +S1, +S2. Absent: diastolic murmur, gallop, rubs, systolic murmur - GI/Abdominal GI/Abdominal exam: Present: normal bowel sounds, soft, no peritoneal signs. Absent: distended, tenderness Internal Medicine: Result - Labs CBC & Chem 7: 08/26/16 05:15 08/26/16 05:15 - ABG Interpretation ABG results: PT/INR, D-dimer PT 13.6 Seconds (9.4-12.1) H 08/19/16 05:00 - VTE Documentation of Mechanical Device: Graduated compression elastic hosiery Consult Discharge Plan - Plan Instructions: Ketorolac (By mouth) Referrals: Nieves Jerry MD [Primary Care Provider] -
--- NOTE | 2016-08-29 13:40 | Discharge Summary ---
Date of Encounter: 08/30/16 Time of Encounter: 11:00 - Discharge Diagnosis (1) S/P cervical spinal fusion Priority: Primary Status: Acute Comments: Patient's pain is much better controlled and he has follow-up appointment the day of discharge with his surgeon (2) Chronic pain syndrome Priority: Secondary Status: Chronic Comments: Overall better control - Discharge Medications Home Medications: OxyCODONE ER (12 HR) [OxyCONTIN] 10 mg PO Q12HR PRN 05/27/15 [History] Amlodipine Besylate 10 mg PO DAILY 03/17/16 [History] Atorvastatin [Lipitor] 40 mg PO HS 03/17/16 [History] Lisinopril/Hydrochlorothiazide [Zestoretic 20-12.5 mg Tablet] 2 tab PO DAILY 10/27 [History] Metoprolol XL (24 HR) Succ [Toprol Xl] 50 mg PO DAILY 03/17/16 [History] Oxycodone HCl/Acetaminophen [Percocet 5-325 mg Tablet] 1 tab PO Q6H PRN [History] Pantoprazole Sodium [Protonix] 40 mg PO Q12H #60 tablet. 03/19/16 [Rx] Sucralfate [Carafate] 1 gm PO TIDAC 30 Days 03/19/16 [Rx] Aspirin 81 mg PO DAILY 07/31/16 [History] OxyCODONE Immed Rel [Roxicodone 5 MG] 10 mg PO Q4H PRN #30 tablet 08/16/16 [Rx] Allergies/Adverse Reactions: Allergies Iodinated Contrast Media - Oral and [Iodinated Contrast Media - IV Dye] Allergy (Verified 05/01/16 12:58) Hives pravastatin Allergy (Verified 07/31/16 09:28) See Comments tachycardia pregabalin [From Lyrica] Adverse Reaction (Verified 07/31/16 09:28) See Comments strange thoughts Date of admission: 08/17/16 14:15 Primary care physician: Nieves Jerry, Consults: 08/17/16 13:55 Consult to Occupational Therapy [CONS] Routine Comment: Evaluate, develop and implement POC Consult to Physical Therapy [CONS] Routine Comment: Evaluate, develop and implement POC Consult to Recreational Therapy [CONS] Routine Comment: Evaluate, develop and implement POC Consult to Sandblast Or Shotblast Equipment Tender [CONS] Routine Reason for SW Consult: eval 08/20/16 15:47 Consult to Psychology [CONS] Routine Consulting Provider: Maricarmen Singh Reason for Consult: grace boo Time Notified: 15:00 Call Completed: No Discharging clinician: Ruiz Bradley Anticipated date of discharge: 08/30/16 - Patient Status Disposition: Home Health Service Condition: Good Functional capacity at discharge: wheelchair bound Overall status at discharge: patient is progressing back to baseline - Discharge Instructions Instructions: Ketorolac (By mouth) Follow Up With: Nieves Jerry MD [Primary Care Provider] - - Diet and Activity Activity: as per physical therapy Diet: advance to your usual diet Interval History: Patient was transferred here for rehabilitation after surgical correction of spinal stenosis in the cervical spine Hospital course: Mr. Kimble is a 71 year old male Patient has done well but needs a wheelchair just due to the fact that he is unstable ambulating independently - Time Spent with Patient Total time spent providing and/or coordinating discharge services: Less than 30 minutes - Constitutional Vitals: Temp Pulse Resp BP Pulse Ox 98.2 F 69 18 151/63 96 08/29/16 07:00 08/29/16 07:00 08/29/16 07:00 08/29/16 07:00 08/29/16 07:00 General appearance: Present: mild distress, A&O X 3, pleasant, no acute distress - Head Head exam: Present: atraumatic, normal inspection, normocephalic - Neck Neck exam general surgery: Present: supple, trachea midline. Absent: lymphadenopathy - Respiratory Respiratory exam: Present: CTAB. Absent: accessory muscle use, rales, rhonchi, wheezes - Cardiovascular Cardiovascular exam: Present: RRR, +S1, +S2. Absent: diastolic murmur, gallop, rubs, systolic murmur - GI/Abdominal GI/Abdominal exam: Present: normal bowel sounds, soft, no peritoneal signs. Absent: distended, tenderness - VTE Documentation of Mechanical Device: Graduated compression elastic hosiery
--- NOTE | 2016-08-29 13:47 | Physician Discharge Referral ---
Home Health/Hosp Referral Info Transfer to: Home Health Provider in Charge Post Discharge: PCP - Diagnosis (1) S/P cervical spinal fusion Priority: Primary Status: Acute (2) Chronic pain syndrome Priority: Secondary Status: Chronic - Respiratory Orders Smoking Cessation: Smoking cessation has been advised. For more information, call the [place] Tobacco Quit Line at 5-466-GMSR-NOW. - Diet/Nutrition Diet/Nutrition Orders: Regular - Activity Activity Orders: Chair - Services Needed Following services are medically necessary services: Nursing, Physical Therapy - Transfer Medications Home Medications: OxyCODONE ER (12 HR) [OxyCONTIN] 10 mg PO Q12HR PRN 05/27/15 [History] Amlodipine Besylate 10 mg PO DAILY 03/17/16 [History] Atorvastatin [Lipitor] 40 mg PO HS 03/17/16 [History] Lisinopril/Hydrochlorothiazide [Zestoretic 20-12.5 mg Tablet] 2 tab PO DAILY 10/27 [History] Metoprolol XL (24 HR) Succ [Toprol Xl] 50 mg PO DAILY 03/17/16 [History] Oxycodone HCl/Acetaminophen [Percocet 5-325 mg Tablet] 1 tab PO Q6H PRN [History] Pantoprazole Sodium [Protonix] 40 mg PO Q12H #60 tablet. 03/19/16 [Rx] Sucralfate [Carafate] 1 gm PO TIDAC 30 Days 03/19/16 [Rx] Aspirin 81 mg PO DAILY 07/31/16 [History] OxyCODONE Immed Rel [Roxicodone 5 MG] 10 mg PO Q4H PRN #30 tablet 08/16/16 [Rx] Allergies/Adverse Reactions: Allergies Iodinated Contrast Media - Oral and [Iodinated Contrast Media - IV Dye] Allergy (Verified 05/01/16 12:58) Hives pravastatin Allergy (Verified 07/31/16 09:28) See Comments tachycardia pregabalin [From Lyrica] Adverse Reaction (Verified 07/31/16 09:28) See Comments strange thoughts Certification: Further, I certify that my clinical findings support that this patient is homebound (i.e. absences from home require considerable and taxing effort and are for medical reasons or episcopal services or infrequently or short duration when for other reasons) because: Homebound Reason: Patient requires assistance of a person or device to safely leave home Attestation: My signature below is to certify that this patient is under my care and that I, or nurse practitioner, or a physician's liaison inspection laboratory assistant working with me, has a face-to -face encounter with this patient.
[2016-08-29] MEDS: *HR* LORazepam 1 MG TABLET PO PRN (21:41)
[2016-08-29] MEDS: Temazepam 15 MG CAPSULE PO PRN (21:41)
[2016-08-30] MEDS: *HR* OxyCODONE Immed Rel 5 MG TABLET PO PRN (03:40)
[2016-08-30] MEDS: Ketorolac 30 MG/ML VIAL IM SCH (06:14)
[2016-08-30] MEDS: *HR* OxyCODONE ER (12 HR) 20 MG TABLET PO SCH (06:14)
[2016-08-30 07:25] VITALS: BP 166/84
[2016-08-30] MEDS: Insulin LISPRO 300 UNITS/3 ML VIAL SQ SCH (07:46)
[2016-08-30] MEDS: Lisinopril-HCTZ 20-12.5mg TABLET PO SCH (08:04)
[2016-08-30] MEDS: *HR* Metformin 500 MG TABLET PO SCH (08:05)
[2016-08-30] MEDS: Baclofen 10 MG TABLET PO SCH (08:05)
[2016-08-30] MEDS: Aspirin 81 MG TAB.CHEW PO SCH (08:05)
[2016-08-30] MEDS: Metoprolol XL (24 HR) Succ 50 MG TAB.ER.24H PO SCH (08:05)
== END 2016-08-30 10:30 | disposition home health service (06) | DRG 950 ==
LOC: INPGRE 08-17 14:15
PROVIDERS: ADMIT Internal Medicine; ATTEND Internal Medicine